=== PATIENT | female | born 1940 | race Caucasian/White ===

== ENCOUNTER 2016-09-15 12:43 | Inpatient (IN) | payer MEDICARE ==
[~2016-09-15] VITALS: Ht 152.4 cm; Wt 50.8 kg
[~2016-09-15 12:43] MED LIST: ALENDRONATE70 MG PO; ALTERIL PO; ASPIRIN CHEWABL81 MG OR; ASPIRIN LOW81 M1 PO; AUGMENTIN500TAB PO; CALCIUM500 MG/D PO; CLARITIN10 M1 PO; CLARITIN10 MG PO; DILTIAZEM CD180 MG PO; DILTIAZEM180 MG PO; DUONEB IN; FISH OIL1360 MG; FLEXERIL PO; FLONASE NASAL50 MCG; FOSAMAX70 MG PO; LIPITOR10 MG PO; LIPITOR20 MG PO; LISINOPRIL10 MG PO; LORTAB 7.5 PO; MEDDOSEPAK PO; METOPROLOL TART50 MG PO; MIRALAX3350 N1 PO; PLAVIX75 MG PO; PROAIR HFA IN; ROBITUSSIN AC10 ML PO; VENTOLIN HFA IN; XANAX0.25 MG PO; ZYRTEC-D AL1 PO; ZYRTEC-D ALG PO
--- NOTE | 2016-09-15 13:00 | NUR ---
DIRECT ADMIT VIA WHEELCHAIR ACCOMPANIED BY VOLUNTEER. AMBULATED TO BED WITH STEADY GAIT. SOB NOTED WITH EXERTION. ORIENTED TO ROOM AND CALL SYSTEM. #20 LFA STARTED AFTER 1 ATTEMPT BY Fadumo WEBSTER RN. PT TOLERATED WELL. SAFETY PRECAUTIONS REINFORCED. HUMIDIFIED O2 VIA NC STARTED. BED IN LOWEST POSITION WITH WHEELS LOCKED. CALL LIGHT WITHIN REACH. ENCOURAGED PT TO CALL FOR ANY NEEDS.
[2016-09-15 13:05] VITALS: BP 186/114
--- NOTE | 2016-09-15 14:00 | NUR ---
TO RADIOLOGY IN STABLE CONDITION VIA WHEELCHAIR ACCOMPANIED BY VOLUNTEER.
[2016-09-15 14:12] LABS: HEMATOCRIT 45.1 % (37.0-47.0); HEMOGLOBIN 15.2 g/dl (12.0-16.0); MEAN CELL VOLUME 91.7 fL CALC (80.0-100.0); MEAN CORPUSCULAR HGB 30.9 pG CALC (26.0-32.0); MEAN CORPUSCULAR HGB CONC 33.7 g/L CALC (32.0-36.0); RED BLOOD COUNT 4.92 mill/uL (4.20-5.60); RED CELL DISTRI WIDTH 14.1 % (11.5-15.5)
--- NOTE | 2016-09-15 14:30 | NUR ---
FROM RADIOLOGY VIA WHEELCHAIR ACCOMPANIED BY VOLUNTEER.
[2016-09-15 15:30] LABS: ALBUMIN 4.3 g/dL (3.2-5.0); ALKALINE PHOSPHATASE 102 u/l (38-126); ANION GAP 15 (6-22 (CALC)); BILIRUBIN, TOTAL 0.8 mg/dL (0.0-1.4); BUN 21 mg/dL (8-23); BUN/CREATININE RATIO 23 (12-20 (CALC)); CALCIUM 10.3 mg/dL (8.4-10.2); CARBON DIOXIDE 29 mmol/l (22-30); CHLORIDE 102 mmol/l (95-108); CREATININE 0.9 mg/dL (0.5-1.0); GFR > 60 ML/MIN (>=60 (CALC)); GFR FOR AFR.AMER. > 60 ML/MIN (>=60 (CALC)); GLUCOSE 105 mg/dL (82-115); SGOT/AST 27 u/l (9-36); SGPT/ALT 29 u/l (11-66); SODIUM 141 mmol/l (137-146); TOTAL PROTEIN 7.9 g/dL (6.3-8.2)
[2016-09-15 15:34] LABS: URINE BILIRUBIN - DIPSTICK NEGATIVE (NEGATIVE); URINE BLOOD DIPSTICK TRACE-INTACT (NEGATIVE); URINE CLARITY CLEAR; URINE COLOR YELLOW; URINE GLUCOSE - DIPSTICK NEGATIVE (NEGATIVE); URINE KETONE NEGATIVE (NEGATIVE); URINE LEUK ESTERASE SMALL (Negative); URINE NITRITE - DIPSTICK NEGATIVE (Negative); URINE PROTEIN - DIPSTICK 30 mg/dL (NEG-TRACE); URINE UROBILINOGEN - DIPSTICK 0.2 E.U./dL (0.2)
[2016-09-15 15:45] LABS: URINE RBC 0-2 RBC/hpf (0-5); URINE SQUAMOUS EPITHELIAL CELL FEW EPI/hpf (0-FEW)
--- NOTE | 2016-09-15 16:00 | NUR ---
IN HIGH FOWLERS POSITON. YASMINE MCKINNEY RN IN WITH PT. RESPS EVEN AND UNLABORED ON O2 VIA NC, SOB NOTED ON EXERTION. #20 LFA INFUSING WITHOUT DIFFICULTY, SITE APPEARS HEALTHY. VOICES NO C/O AT THIS TIME. CALL LIGHT WITHIN REACH. WILL CONTINUE TO MONITOR.
[2016-09-15 17:03] VITALS: BP 178/92
[2016-09-15 19:05] VITALS: BP 172/96
--- NOTE | 2016-09-15 20:20 | NUR ---
PT RESTING IN SEMI FOWLERS POSITION;HUMIDIFIED 02 ON @ 3 LITERS VIA NC;PURSED LIP BREATHING TECHNIQUE EDUCATED AND PT DEMONSTRATED UNDERSTANDING;ASSESSMENT COMPLETED;IV FLUIDS INFUSING WELL TO LFA;SKIN INTACT;BED ALARM ON;PT EDUCATED ON ROOM AND CALL LIGHT SYSTEM AND VERBALIZES UNDERSTANDING;SAFETY PRECAUTIONS REINFORCED;PT DENIES ANY NEEDS AT THIS TIME;BED IN LOWEST POSITION WITH CALL LIGHT IN REACH;WILL CONTINUE TO MONITOR
[2016-09-16 00:29] VITALS: BP 163/86
--- NOTE | 2016-09-16 00:30 | NUR ---
PT SLEEPING IN HIGH FOWLERS POSITION;WOKE PT TO OBTAIN VS AND ADMINISTER SCHEDULED MEDICATION;PT VOIDED 400CC OF CLEAR,YELLOW URINE;IV FLUIDS INFUSING WELL TO LFA;PT DENIES ANY NEEDS AT THIS TIME;PT TOLD TO CALL FOR ASSISTANCE IF NEEDED;BED IN LOWEST POSITION WITH CALL LIGHT IN REACH;WILL CONTINUE TO MONITOR
--- NOTE | 2016-09-16 03:30 | NUR ---
PT RESTING IN SEMI FOWLERS POSITION;IV FLUIDS INFUSING WELL AT THIS TIME;VS OBTAINED AND SCHEDULED MEDICATION ADMINISTERED;PT DENIES ANY PAIN OR DISCOMFORTS;RESPIRATIONS EVEN ON 02 @ 3 LITERS VIA NC;PT DENIES ANY NEEDS AT THIS TIME;BED IN LOWEST POSITION WITH CALL LIGHT IN REACH;WILL CONTINUE TO MONITOR
[2016-09-16 03:33] VITALS: BP 156/73
--- NOTE | 2016-09-16 07:00 | NUR ---
SHIFT CHANGE REPORT FROM MUNA PITTS AWAKE ALERT AND ORIENTED, O2 @ 3L VIA M/C IN PLACE, IVF INFUSING, C/O BEING SHAKY AT THIS TIME AND STATES IT HAS BEEN OCCURING SINCE SHE STARTED STEROIDS, EDUCATED ON SIDE EFFECTS OF MEDS, WILL CONTINUE TO MONITOR, CALL HAMILTON IN REACH.
[2016-09-16 09:03] LABS: HEMATOCRIT 45.1 % (37.0-47.0); IMMATURE GRANULOCYTES 0.7 % (0.0-1.0); MEAN CELL VOLUME 92.6 fL CALC (80.0-100.0); MEAN CORPUSCULAR HGB 30.8 pG CALC (26.0-32.0); MEAN CORPUSCULAR HGB CONC 33.3 g/L CALC (32.0-36.0); NEUT# 15.74 thou/uL (2.00-7.15); RED BLOOD COUNT 4.87 mill/uL (4.20-5.60); RED CELL DISTRI WIDTH 13.1 % (11.5-15.5)
[2016-09-16 09:26] VITALS: BP 173/90
[2016-09-16 09:44] LABS: ANION GAP 20 (6-22 (CALC)); BUN 25 mg/dL (8-23); BUN/CREATININE RATIO 28 (12-20 (CALC)); CALCIUM 10.5 mg/dL (8.4-10.2); CARBON DIOXIDE 22 mmol/l (22-30); CHLORIDE 103 mmol/l (95-108); CREATININE 0.9 mg/dL (0.5-1.0); GFR > 60 ML/MIN (>=60 (CALC)); GFR FOR AFR.AMER. > 60 ML/MIN (>=60 (CALC)); GLUCOSE 214 mg/dL (82-115); POTASSIUM 3.6 mmol/l (3.5-5.1); SODIUM 141 mmol/l (137-146)
--- NOTE | 2016-09-16 09:45 | NUR ---
NEB TX FOLLOWED BY CPT VIA PERCUSSOR TO LLL HOB FLAT. PT TOLERATED WELL.
[2016-09-16 11:55] VITALS: BP 177/85
--- NOTE | 2016-09-16 12:00 | NUR ---
C/O ANXIETY, CONCERN ADDRESSED, MEAL CONSUMED, CALL HAMILTON IN REACH.
--- NOTE | 2016-09-16 13:28 | NUR ---
NEB TX FOLLOWED BY CPT VIA PERCUSSOR. PT TOLERATED WELL.
[2016-09-16 15:20] VITALS: BP 169/66
--- NOTE | 2016-09-16 18:24 | NUR ---
PT SITTING IN CHAIR; TOLERATED DINNER WELL
[2016-09-16 19:00] VITALS: BP 135/75
--- NOTE | 2016-09-16 20:35 | NUR ---
PT RESTING IN SEMI FOWLERS POSITION;PT STATES "I HAD A GOOD DAY,I FEEL BETTER";IV FLUIDS INFUSING WELL TO LFA;ASSESSMENT COMPLETED;O2 ON @ 3 LITERS VIA NC;SKIN INTACT;PT RE-EDUCATED ON ROOM AND CALL LIGHT SYSTEM AND VERRBALIZES UNDERSTANDING;PT DENIES ANY PAIN OR DISCOMFORTS AT THIS TIME;SAFETY PRECAUTIONS REINFORCED;PT TOLD TO CALL FOR ASSISTANCE IF NEEDED;FALL PRECAUTIONS IN PLACE;BED IN LOWEST POSITION WITH CALL LIGHT IN REACH;WILL CONTINUE TO MONITOR
--- NOTE | 2016-09-16 22:19 | NUR ---
PT REQUESTS PRN SLEEPING MEDICATION;PT MEDICATED PER MD ORDERS AT THIS TIME;WILL CONTINUE TO MONITOR
--- NOTE | 2016-09-17 | NUR ---
PT APPEARS TO BE SLEEPING AT THIS TIME;NO S/S OF DISTRESS NOTED;RESPIRATIONS EVEN AND UNLABORED ON 02 @ 3 LITERS;IV FLUIDS INFUSING WELL;BED IN LOWEST POSITION WITH CALL LIGHT IN REACH;WILL CONTINUE TO MONITOR
[2016-09-17 00:45] VITALS: BP 169/79
[2016-09-17 04:31] VITALS: BP 164/85
--- NOTE | 2016-09-17 04:35 | NUR ---
PT APPEARS TO BE SLEEPING IN SEMI FOWLERS POSITION AT THIS TIME;WOKE PT TO OBTAIN VS;PT DENIES ANY PAIN OR DISCOMFORTS;RESPIRATIONS EVEN AND UNLABORED ON O2 @ 3 LITERS;PT DENIES ANY OTHER NEEDS AT THIS TIME;BED IN LOWEST POSITION WITH CALL LIGHT IN REACH;WILL CONTINUE TO MONITOR
[2016-09-17 04:53] LABS: HEMATOCRIT 40.2 % (37.0-47.0); HEMOGLOBIN 13.4 g/dl (12.0-16.0); MEAN CELL VOLUME 92.6 fL CALC (80.0-100.0); MEAN CORPUSCULAR HGB 30.9 pG CALC (26.0-32.0); MEAN CORPUSCULAR HGB CONC 33.3 g/L CALC (32.0-36.0); NEUT# 18.3 thou/uL (2.00-7.15); RED BLOOD COUNT 4.34 mill/uL (4.20-5.60); RED CELL DISTRI WIDTH 13.2 % (11.5-15.5)
[2016-09-17 05:15] LABS: ALBUMIN 3.4 g/dL (3.2-5.0); ALKALINE PHOSPHATASE 81 u/l (38-126); ANION GAP 14 (6-22 (CALC)); BILIRUBIN, TOTAL 0.2 mg/dL (0.0-1.4); BUN 29 mg/dL (8-23); BUN/CREATININE RATIO 28 (12-20 (CALC)); CALCIUM 9.7 mg/dL (8.4-10.2); CARBON DIOXIDE 23 mmol/l (22-30); CHLORIDE 104 mmol/l (95-108); GFR 54 ML/MIN (>=60 (CALC)); GFR FOR AFR.AMER. > 60 ML/MIN (>=60 (CALC)); GLUCOSE 168 mg/dL (82-115); POTASSIUM 3.9 mmol/l (3.5-5.1); SGOT/AST 21 u/l (9-36); SGPT/ALT 28 u/l (11-66); SODIUM 137 mmol/l (137-146); TOTAL PROTEIN 5.9 g/dL (6.3-8.2)
[2016-09-17 07:34] VITALS: BP 158/84
--- NOTE | 2016-09-17 07:40 | NUR ---
PT SITTING IN RECLINER; ASSISTED WITH BREAKFAST SET UP; O2 3L VIA NC; CALL HAMILTON WITHIN REACH; WILL CONTINUE TO MONITOR.
--- NOTE | 2016-09-17 08:45 | NUR ---
DR. SAMAYOA IN TO SEE PT; PLAN OF CARE DISCUSSED
--- NOTE | 2016-09-17 09:50 | NUR ---
PT AMBULATORY IN THE HALLS FOR 6 MIN WALK TEST; STAND BY ASSIST RESP THERAPIST; WILL CONTINUE TO MONITOR.
--- NOTE | 2016-09-17 12:00 | NUR ---
PT MEDICATED FOR C/O GARCIA 10/13; CALL HAMILTON WITHIN REACH; WILL CONTINUE TO MONITOR.
[2016-09-17 15:23] VITALS: BP 161/88
--- NOTE | 2016-09-17 16:30 | NUR ---
PT IN HIGH LIANG'S POSITION; DENIES PAIN; IN ROOM TO VISIT; CALL HAMILTON WITHIN REACH; WILL CONTINUE TO MONITOR.
--- NOTE | 2016-09-17 19:58 | NUR ---
BEDSIDE REPORT RECEIVED FROM RAMIRO COCHRAN. PT UP TO BATHROOM AT THIS TIME. DENIES PAIN. SHORTNESS OF BREATH NOTED WITH EXERTION TO THE BATHROOM WITH OXYGEN IN PLACE AT 3L VIA NC. PT HAS NO REQUESTS AT THIS TIME. PLAN OF CARE DISCUSSED. ENCOURAGED TO VERBALIZE CONCERNS. STATES UNDERSTANDING. SAFETY MEASURES IN PLACE. CALL LIGHT SYSTEM REVIEWED AND IN REACH.
[2016-09-17 20:05] VITALS: BP 183/87
[2016-09-17 22:23] VITALS: BP 163/90
--- NOTE | 2016-09-18 | NUR ---
PT ASLEEP AT THIS TIME. RECEIVED TEMAZEPAM AT BEDTIME WITH GOOD EFFECT. NO SIGNS OF PAIN/DISTRESS. RESPIRATIONS EVEN AND UNLABORED WITH OXYGEN IN PLACE. IV SITE FLUSHES AND APPEARS HEALTHY. SAFETY MEASURES IN PLACE. CALL LIGHT WITHIN REACH.
--- NOTE | 2016-09-18 04:00 | NUR ---
PT ASLEEP AT THIS TIME. NO SIGNS OF PAIN OR DISCOMFORT NOTED. RESPIRATIONS EVEN AND UNLABORED. UP TO BATHROOM NEEDED. SAFETY MEASURES IN PLACE. CALL LIGHT WITHIN REACH.
[2016-09-18 05:25] VITALS: BP 158/88
[2016-09-18 06:31] LABS: HEMATOCRIT 41.1 % (37.0-47.0); HEMOGLOBIN 13.5 g/dl (12.0-16.0); IMMATURE GRANULOCYTES 2.3 % (0.0-1.0); MEAN CELL VOLUME 93.4 fL CALC (80.0-100.0); MEAN CORPUSCULAR HGB 30.7 pG CALC (26.0-32.0); MEAN CORPUSCULAR HGB CONC 32.8 g/L CALC (32.0-36.0); NEUT# 14.75 thou/uL (2.00-7.15); RED BLOOD COUNT 4.4 mill/uL (4.20-5.60); RED CELL DISTRI WIDTH 13.3 % (11.5-15.5)
[2016-09-18 06:46] LABS: ANION GAP 12 (6-22 (CALC)); BUN 34 mg/dL (8-23); BUN/CREATININE RATIO 35 (12-20 (CALC)); CALCIUM 9.8 mg/dL (8.4-10.2); CARBON DIOXIDE 26 mmol/l (22-30); CHLORIDE 107 mmol/l (95-108); GFR 54 ML/MIN (>=60 (CALC)); GFR FOR AFR.AMER. > 60 ML/MIN (>=60 (CALC)); GLUCOSE 125 mg/dL (82-115); POTASSIUM 4.6 mmol/l (3.5-5.1); SODIUM 140 mmol/l (137-146)
--- NOTE | 2016-09-18 07:00 | NUR ---
REPORT RECIEVED FROM DILMA KIM; PT SITTING UP IN BED; NO S/S OF DISTRESS NOTED; PT DENIES ANY NEEDS AT THIS TIME; CALL LIGHT WITHIN REACH; WILL CONTINUE TO MONITOR
[2016-09-18 08:03] VITALS: BP 188/97
--- NOTE | 2016-09-18 12:00 | NUR ---
PT AMB IN HALLS WITH STEADY GATE; ANDRES MANNING AT STAND BY FOR ASSISTANCE; O2 NC IN PLACE; PT DENIES ANY SOB OR DISCOMFORT AT THIS TIME; CALL LIGHT WITHIN REACH; WILL CONTINUE TO MONITOR
--- NOTE | 2016-09-18 15:45 | NUR ---
MANUAL B/P READING 190/100 AT THIS TIME; DR SAMAYOA NOTIFIED AND NEW ORDERS RECIEVED; PT MEDICATED WITH CLONIDINE PER DR SAMAYOA; PT EDUCATED ON INDICATIONS FOR MEDICATIONS; WILL CONTINUE TO MONITOR
[2016-09-18 15:59] VITALS: BP 190/100
--- NOTE | 2016-09-18 16:00 | NUR ---
PT SITTING UP IN CHAIR AT BEDSIDE; NO S/S OF DISTRESS NOTED; O2 NC IN PLACE; PT DENIES ANY NEEDS AT THIS TIME; FRIENDS AT THIS TIME; CALL LIGHT WITHIN REACH; WILL CONTINUE TO MONITOR
[2016-09-18 19:29] VITALS: BP 162/84
--- NOTE | 2016-09-18 19:29 | NUR ---
PT. SITTING UP IN BED RESTING IN BED WITH NO DISTRESS NOTED. ASSESSMENT COMPLETED. IV SITE PATENT AND SL. VS OBTAINED, 162/84 AND HR 67, ADMINISTERED ORDERED CLONIDINE PER ORDER. PT. UPDATED WITH POC, VERBALIZES UNDERSTANDING. PO FLUIDS OFFERED. ENCOURAGED TO CALL FOR ANY NEEDS. IS AT BEDSIDE. CALL LIGHT IS IN REACH.
[2016-09-18 22:03] VITALS: BP 177/90
--- NOTE | 2016-09-18 22:05 | NUR ---
NOTIFIED DR. SAMAYOA OF PT'S B/P 177/90 AND HR 61, NEW ORDERS RECEIVED AND TO BE CARRIED OUT.
--- NOTE | 2016-09-18 23:50 | NUR ---
PT. ASSISTED TO THE BATHROOM AND BACK INTO BED. NO DISTRESS NOTED. WILL CONTINUE TO MONITOR.
[2016-09-19] VITALS (7 sets, daily range): BP systolic 128–190; BP diastolic 68–90
--- NOTE | 2016-09-19 03:30 | NUR ---
PT. RESTING IN BED WITH EYES CLOSED, NO DISTRESS NOTED. RESP EVEN AND UNLABORED. CALL LIGHT IS IN REACH.
--- NOTE | 2016-09-19 05:10 | NUR ---
PT'S B/P 190/86 AND HR 62, MEDICATED WITH ORDERED CLONIDINE. PO FLUIDS OFFERED. DENIES NEEDS/PAIN. CALL LIGHT IS IN REACH.
[2016-09-19 05:18] LABS: HEMATOCRIT 40.8 % (37.0-47.0); HEMOGLOBIN 13.6 g/dl (12.0-16.0); IMMATURE GRANULOCYTES 2.4 % (0.0-1.0); MEAN CELL VOLUME 92.3 fL CALC (80.0-100.0); MEAN CORPUSCULAR HGB 30.8 pG CALC (26.0-32.0); MEAN CORPUSCULAR HGB CONC 33.3 g/L CALC (32.0-36.0); NEUT# 9.44 thou/uL (2.00-7.15); RED BLOOD COUNT 4.42 mill/uL (4.20-5.60); RED CELL DISTRI WIDTH 13.1 % (11.5-15.5)
[2016-09-19 05:35] LABS: ALBUMIN 3.6 g/dL (3.2-5.0); ALKALINE PHOSPHATASE 81 u/l (38-126); ANION GAP 12 (6-22 (CALC)); BILIRUBIN, TOTAL 0.5 mg/dL (0.0-1.4); BUN 27 mg/dL (8-23); BUN/CREATININE RATIO 31 (12-20 (CALC)); CALCIUM 9.8 mg/dL (8.4-10.2); CARBON DIOXIDE 29 mmol/l (22-30); CHLORIDE 101 mmol/l (95-108); CREATININE 0.9 mg/dL (0.5-1.0); GFR > 60 ML/MIN (>=60 (CALC)); GFR FOR AFR.AMER. > 60 ML/MIN (>=60 (CALC)); GLUCOSE 135 mg/dL (82-115); POTASSIUM 4.4 mmol/l (3.5-5.1); SGOT/AST 33 u/l (9-36); SGPT/ALT 54 u/l (11-66); SODIUM 137 mmol/l (137-146); TOTAL PROTEIN 6.2 g/dL (6.3-8.2)
--- NOTE | 2016-09-19 06:30 | NUR ---
DR. SAMAYOA CALLED AND NOTIFIED OF PT'S MANUAL B/P 180/90 AFTER ADMINISTRATION OF CLONIDINE , NEW ORDERS RECEIVED AND TO BE CARRIED OUT.
--- NOTE | 2016-09-19 07:00 | NUR ---
REPORT RECIEVED FROM RAMIRO VAZQUEZ; PT RESTING IN BED; RT AT BEDSIDE FOR PERCUSSION THERAPY; PT DENIES ANY NEEDS AT THIS TIME; CALL LIGHT WITHIN REACH; WILL CONTINUE TO MONITOR
--- NOTE | 2016-09-19 12:43 | NUR ---
PT SITTING UP IN CHAIR FOR LUNCH; NO S/S OF DISTRESS NOTED; O2 NC IN PLACE; SPOUSE AT BEDSIDE; PT DENIES ANY NEEDS AT THIS TIME; CALL LIGHT WITHIN REACH; WILL CONTINUE TO [place]
--- NOTE | 2016-09-19 20:30 | NUR ---
PT RESTING IN SEMI FOWLERS POSITION;PT DENIES ANY PAIN OR DISCOMFORTS;IV SITE TO RT FOREARM FLUSHED AND PATENT;02 ON @ 3 LITERS VIA NC;ASSESSMENT COMPLETED;NON PRODUCTIVE COUGH NOTED AT TIMES;PURSED LIP BREATHING TECHNIQUE RE-EDUCATED;PT DENIES ANY NEEDS;PT TOLD TO CALL FOR ASSISTANCE IF NEEDED;SAFETY PRECAUTIONS REINFORCED;BED IN LOWEST POSITION WITH CALL LIGHT IN REACH;WILL CONTINUE TO MONITOR
--- NOTE | 2016-09-20 00:45 | NUR ---
PT APPEARS TO BE SLEEPING IN HIGH FOWLERS POSITION;02 0N @ 3 LITERS VIA NC;NO S/S OF DISTRESS NOTED;RESPIRATIONS EVEN AND UNLABORED;BED IN LOWEST POSITION WITH FALL PRECAUTIONS IN PLACE;CALL LIGHT WITHIN REACH;WILL CONTINUE TO MONITOR
--- NOTE | 2016-09-20 04:30 | NUR ---
PT APPEARS TO BE SLEEPING AT THIS TIME;NO S/S OF DISTRESS NOTED;RESPIRATIONS EVEN AND UNLABORED ON 02 @ 3 LITERS;FALL PRECAUTIONS IN PLACE;BED IN LOWEST POSITION WITH CALL LIGHT IN REACH;WILL CONTINUE TO MONITOR
[2016-09-20 04:55] VITALS: BP 136/78
[2016-09-20 05:25] LABS: HEMATOCRIT 42.1 % (37.0-47.0); HEMOGLOBIN 14.1 g/dl (12.0-16.0); IMMATURE GRANULOCYTES 3.2 % (0.0-1.0); MEAN CELL VOLUME 92.1 fL CALC (80.0-100.0); MEAN CORPUSCULAR HGB 30.9 pG CALC (26.0-32.0); MEAN CORPUSCULAR HGB CONC 33.5 g/L CALC (32.0-36.0); NEUT# 10.61 thou/uL (2.00-7.15); RED BLOOD COUNT 4.57 mill/uL (4.20-5.60)
[2016-09-20 05:53] LABS: ANION GAP 13 (6-22 (CALC)); BUN 31 mg/dL (8-23); BUN/CREATININE RATIO 33 (12-20 (CALC)); CALCIUM 9.8 mg/dL (8.4-10.2); CARBON DIOXIDE 28 mmol/l (22-30); CHLORIDE 100 mmol/l (95-108); GFR 54 ML/MIN (>=60 (CALC)); GFR FOR AFR.AMER. > 60 ML/MIN (>=60 (CALC)); GLUCOSE 118 mg/dL (82-115); POTASSIUM 4.5 mmol/l (3.5-5.1); SODIUM 137 mmol/l (137-146)
--- NOTE | 2016-09-20 07:45 | NUR ---
PT ASSISTED WITH [facility] SET UP; DENIES PAIN ; 02 3L VIA NC; CALL HAMILTON WITHIN REACH; WILL CONTINUE TO MONITOR.
--- NOTE | 2016-09-20 08:45 | NUR ---
DR. SAMAYOA IN TO SEE PT; PLAN OF CARE DISCUSSED
[2016-09-20 09:45] VITALS: BP 163/84
--- NOTE | 2016-09-20 12:00 | NUR ---
PT SITTING IN BED; TOLERATING LUNCH WELL; GAVE INHALER PER PT REQUEST; SPOUSE IN ROOM TO VISIT; CALL HAMILTON WITHIN REACH; WILL CONTINUE TO MONITOR.
[2016-09-20] MEDS ORDERED: METOPROLOL TART50 MG PO (12:26)
[2016-09-20] MEDS ORDERED: DUONEB IN (12:26)
[2016-09-20] MEDS ORDERED: LIPITOR20 MG PO (12:26)
[2016-09-20] MEDS ORDERED: ASPIRIN LOW81 M1 PO (12:27)
[2016-09-20] MEDS ORDERED: XANAX0.25 MG PO (12:27)
[2016-09-20] MEDS ORDERED: MIRALAX3350 N1 PO (12:27)
[2016-09-20] MEDS ORDERED: DILTIAZEM CD180 MG PO (12:27)
[2016-09-20] MEDS ORDERED: ROBITUSSIN AC10 ML PO (12:27)
[2016-09-20] MEDS ORDERED: ALENDRONATE70 MG PO (12:28)
[2016-09-20] MEDS ORDERED: PREDNISONE20 MG PO (12:29)
[2016-09-20 13:31] VITALS: BP 166/84
--- NOTE | 2016-09-20 14:42 | NUR ---
PT STATES SOB IS BETTER; REQUESTING TO GO HOME AT THIS TIME
--- NOTE | 2016-09-20 15:38 | NUR ---
Discharge instructions given. Patient verbalizes understanding of same. Discharged in stable condition via Wheelchair to Home with family. All belongings sent with pt.
== END 2016-09-20 16:08 | disposition home or self-care (01) | DRG 189 ==
LOC: ENPENDDIS → MS2 12:43
PROVIDERS: ADMIT Internal Medicine Geriatric Medicine; ATTEND Internal Medicine Geriatric Medicine
DX: J96.00 Acute respiratory failure, unspecified whether with hypoxia or hypercapnia (principal); J44.0 Chronic obstructive pulmonary disease with (acute) lower respiratory infection; F32.9 Major depressive disorder, single episode, unspecified; I10 Essential (primary) hypertension; J20.9 Acute bronchitis, unspecified; I25.10 Atherosclerotic heart disease of native coronary artery without angina pectoris; E78.5 Hyperlipidemia, unspecified; J45.909 Unspecified asthma, uncomplicated; E03.9 Hypothyroidism, unspecified; M19.90 Unspecified osteoarthritis, unspecified site; J32.9 Chronic sinusitis, unspecified; F41.9 Anxiety disorder, unspecified

== ENCOUNTER → 2018-08-09 | Outpatient (REF) | payer MEDICARE ==
[~2018-08-09] MED LIST changes: +PREDNISONE20 MG PO
[2018-08-09 08:13] LABS: HEMATOCRIT 46.7 % (37.0-47.0); HEMOGLOBIN 15.5 g/dl (12.0-16.0); MEAN CELL VOLUME 93.4 fL CALC (80.0-100.0); MEAN CORPUSCULAR HGB CONC 33.2 g/L CALC (32.0-36.0); RED CELL DISTRI WIDTH 12.9 % (11.5-15.5)
[2018-08-09 08:21] LABS: ALBUMIN 4.6 g/dL (3.2-5.0); ALKALINE PHOSPHATASE 84 u/l (38-126); ANION GAP 13 (6-22 (CALC)); BILIRUBIN, TOTAL 0.7 mg/dL (0.0-1.4); BUN 25 mg/dL (8-23); BUN/CREATININE RATIO 26 (12-20 (CALC)); CALCULATED LDLCHOLESTEROL 79 mg/dL (62-129 (CALC)); CARBON DIOXIDE 28 mmol/l (22-30); CHLORIDE 105 mmol/l (95-108); CHOLESTEROL HDL RATIO 2.4 (<4.4 (CALC)); GFR 54 ML/MIN (>=60 (CALC)); GFR FOR AFR.AMER. > 60 ML/MIN (>=60 (CALC)); HDL CHOLESTEROL 71 mg/dL (>=40); POTASSIUM 4.4 mmol/l (3.5-5.1); SGOT/AST 27 u/l (9-36); SODIUM 142 mmol/l (137-146); TOTAL CHOLESTEROL 167 mg/dl (0-199); TOTAL PROTEIN 7.1 g/dL (6.3-8.2); TOTAL TRIGLYCERIDES 85 mg/dl (30-149); VLDL CHOLESTROL 17 mg/dl (0-48 (CALC))
== END | disposition home or self-care (01) ==
LOC: LAB 07:18
PROVIDERS: ATTEND Internal Medicine
DX: I10 Essential (primary) hypertension (principal); E78.49 Other hyperlipidemia; E03.9 Hypothyroidism, unspecified; R53.83 Other fatigue; I50.22 Chronic systolic (congestive) heart failure; E11.65 Type 2 diabetes mellitus with hyperglycemia; E21.3 Hyperparathyroidism, unspecified

== ENCOUNTER 2020-04-12 12:43 | Emergency (ER) | payer MEDICARE ==
[~2020-04-12] VITALS: Ht 152.4 cm; Wt 45.0 kg
[2020-04-12] MEDS ORDERED: IPRATROPIU0.5 MG/3 M IN (13:04)
[2020-04-12] MEDS ORDERED: TRELEGY ELLIPTA1 AER IN (13:05)
[2020-04-12] MEDS ORDERED: LOSARTAN POTAS100 MG PO (13:06)
[2020-04-12] MEDS ORDERED: SERTRALINE HCL50 MG PO (13:06)
[2020-04-12] MEDS ORDERED: MONTELUKAST SOD10 MG PO (13:06)
[2020-04-12] MEDS ORDERED: DILTIAZEM HYDR240 MG PO (13:07)
[2020-04-12] MEDS ORDERED: ATORVASTATIN CA20 MG PO (13:07)
[2020-04-12] MEDS ORDERED: MIRALAX17 GM/SCOO PO (13:08)
[2020-04-12 13:30] VITALS: BP 118/56
== END 2020-04-12 13:34 | disposition home or self-care (01) ==
LOC: ED 12:43
PROC: 0H9DXZZ Drainage of Right Lower Arm Skin, External Approach (ICD-10-PCS; principal; 2020-04-12)
DX: L02.413 Cutaneous abscess of right upper limb (principal); I10 Essential (primary) hypertension; E78.5 Hyperlipidemia, unspecified; B95.62 Methicillin resistant Staphylococcus aureus infection as the cause of diseases classified elsewhere; Z95.5 Presence of coronary angioplasty implant and graft

== ENCOUNTER 2020-12-22 11:37 | Emergency (ER) | payer MEDICARE ==
[~2020-12-22] VITALS: Ht 152.4 cm; Wt 45.0 kg
[~2020-12-22 11:37] MED LIST changes: +ATORVASTATIN CA20 MG PO; +DILTIAZEM HYDR240 MG PO; +IPRATROPIU0.5 MG/3 M IN; +LOSARTAN POTAS100 MG PO; +MIRALAX17 GM/SCOO PO; +MONTELUKAST SOD10 MG PO; +SERTRALINE HCL50 MG PO; +TRELEGY ELLIPTA1 AER IN
[2020-12-22 12:59] VITALS: BP 150/82
== END 2020-12-22 13:08 | disposition home or self-care (01) ==
LOC: ED 11:37
DX: M19.011 Primary osteoarthritis, right shoulder (principal); M47.812 Spondylosis without myelopathy or radiculopathy, cervical region; D17.1 Benign lipomatous neoplasm of skin and subcutaneous tissue of trunk; I10 Essential (primary) hypertension; E78.5 Hyperlipidemia, unspecified; Z95.5 Presence of coronary angioplasty implant and graft; Z12.31 Encounter for screening mammogram for malignant neoplasm of breast

== ENCOUNTER 2021-07-25 09:44 | Emergency (ER) | payer MEDICARE ==
[~2021-07-25] VITALS: Ht 152.4 cm; Wt 38.6 kg
[2021-07-25 10:57] LABS: HEMATOCRIT 41.2 % (37.0-47.0); HEMOGLOBIN 13.1 g/dl (12.0-16.0); MEAN CELL VOLUME 94.1 fL CALC (80.0-100.0); MEAN CORPUSCULAR HGB 29.9 pG CALC (26.0-32.0); MEAN CORPUSCULAR HGB CONC 31.8 g/dL CAL (32.0-36.0); NEUT# 4.06 thou/uL (2.00-7.15); RED BLOOD COUNT 4.38 mill/uL (4.20-5.60); RED CELL DISTRI WIDTH 13.4 % (11.5-15.5)
[2021-07-25 11:00] LABS: ALKALINE PHOSPHATASE 83 u/l (38-126); ANION GAP 13 (6-22 (CALC)); BILIRUBIN, TOTAL 0.4 mg/dL (0.0-1.4); BUN 21 mg/dL (8-23); BUN/CREATININE RATIO 22 (12-20 (CALC)); CARBON DIOXIDE 26 mmol/l (22-30); CHLORIDE 108 mmol/l (95-108); CREATININE 0.9 mg/dL (0.5-1.0); GFR 60 ML/MIN (>=60 (CALC)); GFR FOR AFR.AMER. > 60 ML/MIN (>=60 (CALC)); POTASSIUM 4.1 mmol/l (3.5-5.1); SGOT/AST 28 u/l (9-36); SODIUM 143 mmol/l (137-146); TOTAL PROTEIN 6.6 g/dL (6.3-8.2)
[2021-07-25] MEDS ORDERED: ASPIRIN81 MG PO (11:10)
[2021-07-25] MEDS ORDERED: MAGNESIUM 400 M1 TAB (11:11)
[2021-07-25] MEDS ORDERED: VITAMIN D2000 UNI1 PO (11:11)
[2021-07-25] MEDS ORDERED: NORVASC5 M1 PO (11:12)
[2021-07-25] MEDS ORDERED: VITAMIN B-121000 MCG PO (11:12)
[2021-07-25 18:14] VITALS: BP 168/98
== END 2021-07-25 18:15 | disposition short-term general hospital (02) ==
LOC: ED 09:44
PROVIDERS: Family Medicine
DX: J18.9 Pneumonia, unspecified organism (principal); R04.2 Hemoptysis; I10 Essential (primary) hypertension; E78.5 Hyperlipidemia, unspecified; Z88.1 Allergy status to other antibiotic agents; Z20.822 Contact with and (suspected) exposure to COVID-19
CPT/HCPCS: Q9967; S0164

== ENCOUNTER 2022-02-07 11:02 | Emergency (ER) | payer MEDICARE ==
[2022-02-07] VITALS (13 sets, daily range): BP systolic 129–157; BP diastolic 69–93
[~2022-02-07] VITALS: Ht 152.4 cm; Wt 37.2 kg
[~2022-02-07 11:02] MED LIST changes: +ASPIRIN81 MG PO; +MAGNESIUM 400 M1 TAB; +NORVASC5 M1 PO; +VITAMIN B-121000 MCG PO; +VITAMIN D2000 UNI1 PO
[2022-02-07] MEDS ORDERED: ALBUTEROL SUL0.083 % IN (11:38)
[2022-02-07 12:01] LABS: HEMOGLOBIN 11.4 g/dl (12.0-16.0); IMMATURE GRANULOCYTES 0.2 % (0.0-5.0); MEAN CELL VOLUME 91.8 fL CALC (80.0-100.0); MEAN CORPUSCULAR HGB 31.1 pG CALC (26.0-32.0); MEAN CORPUSCULAR HGB CONC 33.8 g/dL CAL (32.0-36.0); NEUT# 4.41 thou/uL (2.00-7.15); RED BLOOD COUNT 3.67 mill/uL (4.20-5.60); RED CELL DISTRI WIDTH 13.5 % (11.5-15.5)
[2022-02-07 12:02] LABS: HEMATOCRIT 33.7 % (37.0-47.0)
[2022-02-07 12:14] LABS: ALBUMIN 4.1 g/dL (3.2-5.0); ALKALINE PHOSPHATASE 80 u/l (38-126); ANION GAP 12 (6-22 (CALC)); BILIRUBIN, TOTAL 0.3 mg/dL (0.0-1.4); BUN 36 mg/dL (8-23); BUN/CREATININE RATIO 36 (12-20 (CALC)); CARBON DIOXIDE 23 mmol/l (22-30); CHLORIDE 110 mmol/l (95-108); GFR FOR AFR.AMER. > 60 ML/MIN (>=60 (CALC)); GFR OTHER RACES 53 ML/MIN (>=60 (CALC)); POTASSIUM 4.2 mmol/l (3.5-5.1); SGOT/AST 26 u/l (9-36); SODIUM 141 mmol/l (137-146)
[2022-02-07] MEDS ORDERED: DOXY-CAPS100 MG PO (13:39)
[2022-02-07] MEDS ORDERED: PREDNISONE50 MG PO (13:39)
== END 2022-02-07 14:15 | disposition home or self-care (01) ==
LOC: ED 11:02
PROVIDERS: Family Medicine
DX: J06.9 Acute upper respiratory infection, unspecified (principal); J40 Bronchitis, not specified as acute or chronic; J44.9 Chronic obstructive pulmonary disease, unspecified; I10 Essential (primary) hypertension; E78.5 Hyperlipidemia, unspecified; Z95.5 Presence of coronary angioplasty implant and graft; Z85.118 Personal history of other malignant neoplasm of bronchus and lung; Z87.891 Personal history of nicotine dependence; Z20.822 Contact with and (suspected) exposure to COVID-19

== ENCOUNTER 2022-02-17 00:37 | Observation (INO) | payer MEDICARE ==
[~2022-02-17] VITALS: Ht 152.4 cm; Wt 37.0 kg
[2022-02-17] VITALS (12 sets, daily range): BP systolic 121–185; BP diastolic 68–101
[~2022-02-17 00:37] MED LIST changes: +ALBUTEROL SUL0.083 % IN; +DOXY-CAPS100 MG PO; +PREDNISONE50 MG PO
[2022-02-17 01:08] LABS: HEMATOCRIT 38.6 % (37.0-47.0); HEMOGLOBIN 12.8 g/dl (12.0-16.0); IMMATURE GRANULOCYTES 1.1 % (0.0-5.0); MEAN CELL VOLUME 92.3 fL CALC (80.0-100.0); MEAN CORPUSCULAR HGB 30.6 pG CALC (26.0-32.0); MEAN CORPUSCULAR HGB CONC 33.2 g/dL CAL (32.0-36.0); NEUT# 8.42 thou/uL (2.00-7.15); RED BLOOD COUNT 4.18 mill/uL (4.20-5.60); RED CELL DISTRI WIDTH 13.4 % (11.5-15.5)
[2022-02-17 01:17] LABS: ALKALINE PHOSPHATASE 87 u/l (38-126); AMYLASE 121 u/l (30-110); ANION GAP 15 (6-22 (CALC)); BILIRUBIN, TOTAL 0.4 mg/dL (0.0-1.4); BUN 41 mg/dL (8-23); BUN/CREATININE RATIO 35 (12-20 (CALC)); CARBON DIOXIDE 25 mmol/l (22-30); CHLORIDE 102 mmol/l (95-108); CREATININE 1.2 mg/dL (0.5-1.0); GFR FOR AFR.AMER. 52 ML/MIN (>=60 (CALC)); GFR OTHER RACES 43 ML/MIN (>=60 (CALC)); LIPASE 279 u/l (23-300); POTASSIUM 4.3 mmol/l (3.5-5.1); SGOT/AST 35 u/l (9-36); SODIUM 139 mmol/l (137-146); TOTAL PROTEIN 7.8 g/dL (6.3-8.2)
[2022-02-17 01:29] LABS: MYOGLOBIN 102 ng/mL (0 - 62)
[2022-02-17 01:35] LABS: URINE BILIRUBIN - DIPSTICK NEGATIVE (NEGATIVE); URINE BLOOD DIPSTICK NEGATIVE (NEGATIVE); URINE COLOR YELLOW; URINE GLUCOSE - DIPSTICK NEGATIVE (NEGATIVE); URINE KETONE NEGATIVE (NEGATIVE); URINE LEUK ESTERASE NEGATIVE (NEGATIVE); URINE PROTEIN - DIPSTICK NEGATIVE (NEG-TRACE); URINE UROBILINOGEN - DIPSTICK 0.2 E.U./dL (0.2)
[2022-02-17 01:42] LABS: URINE NITRITE - DIPSTICK NEGATIVE (Negative)
== END 2022-02-17 13:05 | disposition home or self-care (01) ==
LOC: ED 00:37 → ED-I 02:50 → ED 03:24 → MS2 03:25
PROVIDERS: Emergency Medicine; ADMIT Internal Medicine; ATTEND Internal Medicine
DX: K59.09 Other constipation (principal); I10 Essential (primary) hypertension; J44.9 Chronic obstructive pulmonary disease, unspecified; E78.5 Hyperlipidemia, unspecified; Q43.9 Congenital malformation of intestine, unspecified; Z95.5 Presence of coronary angioplasty implant and graft; Z87.891 Personal history of nicotine dependence; Z85.118 Personal history of other malignant neoplasm of bronchus and lung; Z90.2 Acquired absence of lung [part of]; Z20.822 Contact with and (suspected) exposure to COVID-19
CPT/HCPCS: S0164

== ENCOUNTER 2022-02-26 09:06 | Inpatient (IN) | payer MEDICARE ==
[~2022-02-26] VITALS: Ht 149.9 cm; Wt 38.0 kg
[2022-02-26] VITALS (22 sets, daily range): BP systolic 85–148; BP diastolic 48–70
[2022-02-26] MEDS ORDERED: ADVAIR DISK1 INH (09:56)
[2022-02-26] MEDS ORDERED: ACETAMINOP160 MG/5 M PO (09:59)
[2022-02-26 10:16] LABS: URINE BILIRUBIN - DIPSTICK NEGATIVE (NEGATIVE); URINE BLOOD DIPSTICK NEGATIVE (NEGATIVE); URINE COLOR YELLOW; URINE GLUCOSE - DIPSTICK NEGATIVE (NEGATIVE); URINE KETONE TRACE mg/dL (NEGATIVE); URINE LEUK ESTERASE NEGATIVE (NEGATIVE); URINE PROTEIN - DIPSTICK NEGATIVE (NEG-TRACE); URINE SPECIFIC GRAVITY 1.025; URINE UROBILINOGEN - DIPSTICK 0.2 E.U./dL (0.2)
[2022-02-26 10:18] LABS: URINE NITRITE - DIPSTICK NEGATIVE (Negative)
[2022-02-26 10:41] LABS: ALKALINE PHOSPHATASE 76 u/l (38-126); ANION GAP 13 (6-22 (CALC)); BUN 33 mg/dL (8-23); BUN/CREATININE RATIO 26 (12-20 (CALC)); CARBON DIOXIDE 18 mmol/l (22-30); CHLORIDE 107 mmol/l (95-108); CREATININE 1.3 mg/dL (0.5-1.0); GFR FOR AFR.AMER. 48 ML/MIN (>=60 (CALC)); GFR OTHER RACES 39 ML/MIN (>=60 (CALC)); POTASSIUM 4.4 mmol/l (3.5-5.1); SGOT/AST 26 u/l (9-36); SODIUM 134 mmol/l (137-146)
[2022-02-26 10:42] LABS: ALBUMIN 3.7 g/dL (3.2-5.0); BILIRUBIN, TOTAL 0.8 mg/dL (0.0-1.4)
[2022-02-26 10:54] LABS: MYOGLOBIN 72 ng/mL (0 - 62)
[2022-02-26 10:56] LABS: HEMATOCRIT 34.4 % (37.0-47.0); HEMOGLOBIN 11.4 g/dl (12.0-16.0); MEAN CORPUSCULAR HGB 30.8 pG CALC (26.0-32.0); MEAN CORPUSCULAR HGB CONC 33.1 g/dL CAL (32.0-36.0); PLATELET COUNT 216 thou/uL (130-400); RED CELL DISTRI WIDTH 13.6 % (11.5-15.5)
[2022-02-26 11:01] LABS: MANUAL DIFFERENTIAL YES
[2022-02-27 00:18] VITALS: BP 91/51
[2022-02-27 03:56] VITALS: BP 93/57
[2022-02-27 05:34] LABS: HEMATOCRIT 32.7 % (37.0-47.0); HEMOGLOBIN 10.4 g/dl (12.0-16.0); MEAN CELL VOLUME 97.3 fL CALC (80.0-100.0); MEAN CORPUSCULAR HGB CONC 31.8 g/dL CAL (32.0-36.0); RED BLOOD COUNT 3.36 mill/uL (4.20-5.60); RED CELL DISTRI WIDTH 13.9 % (11.5-15.5)
[2022-02-27 05:39] LABS: CREATININE 1.1 mg/dL (0.5-1.0); MAGNESIUM 2.5 mg/dL (1.6-2.3); POTASSIUM 3.7 mmol/l (3.5-5.1)
[2022-02-27 06:35] VITALS: BP 89/49
[2022-02-27 10:43] VITALS: BP 90/52
[2022-02-27 15:29] VITALS: BP 101/60
[2022-02-27 19:02] VITALS: BP 87/53
[2022-02-28] VITALS (7 sets, daily range): BP systolic 102–142; BP diastolic 55–84
[2022-02-28 04:56] LABS: HEMATOCRIT 32.5 % (37.0-47.0); HEMOGLOBIN 10.3 g/dl (12.0-16.0); IMMATURE GRANULOCYTES 0.8 % (0.0-5.0); MEAN CORPUSCULAR HGB 30.7 pG CALC (26.0-32.0); MEAN CORPUSCULAR HGB CONC 31.7 g/dL CAL (32.0-36.0); NEUT# 14.33 thou/uL (2.00-7.15); RED BLOOD COUNT 3.35 mill/uL (4.20-5.60); RED CELL DISTRI WIDTH 14.1 % (11.5-15.5)
[2022-02-28 05:10] LABS: ANION GAP 12 (6-22 (CALC)); BUN 24 mg/dL (8-23); BUN/CREATININE RATIO 26 (12-20 (CALC)); CARBON DIOXIDE 17 mmol/l (22-30); CHLORIDE 114 mmol/l (95-108); CREATININE 0.9 mg/dL (0.5-1.0); GFR FOR AFR.AMER. > 60 ML/MIN (>=60 (CALC)); GFR OTHER RACES 60 ML/MIN (>=60 (CALC)); POTASSIUM 3.8 mmol/l (3.5-5.1); SODIUM 138 mmol/l (137-146)
[2022-03-01] VITALS (8 sets, daily range): BP systolic 119–178; BP diastolic 66–83
[2022-03-01 05:20] LABS: HEMATOCRIT 32.6 % (37.0-47.0); HEMOGLOBIN 10.4 g/dl (12.0-16.0); IMMATURE GRANULOCYTES 0.7 % (0.0-5.0); MEAN CELL VOLUME 96.7 fL CALC (80.0-100.0); MEAN CORPUSCULAR HGB 30.9 pG CALC (26.0-32.0); MEAN CORPUSCULAR HGB CONC 31.9 g/dL CAL (32.0-36.0); NEUT# 10.67 thou/uL (2.00-7.15); RED BLOOD COUNT 3.37 mill/uL (4.20-5.60); RED CELL DISTRI WIDTH 14.1 % (11.5-15.5)
[2022-03-01 05:47] LABS: ANION GAP 9 (6-22 (CALC)); BUN 19 mg/dL (8-23); BUN/CREATININE RATIO 24 (12-20 (CALC)); CARBON DIOXIDE 18 mmol/l (22-30); CHLORIDE 117 mmol/l (95-108); CREATININE 0.8 mg/dL (0.5-1.0); GFR FOR AFR.AMER. > 60 ML/MIN (>=60 (CALC)); GFR OTHER RACES > 60 ML/MIN (>=60 (CALC)); POTASSIUM 4.1 mmol/l (3.5-5.1); SODIUM 140 mmol/l (137-146)
[2022-03-02 01:09] VITALS: BP 144/81
[2022-03-02 03:54] VITALS: BP 136/82
[2022-03-02 05:11] LABS: HEMATOCRIT 29.5 % (37.0-47.0); HEMOGLOBIN 9.5 g/dl (12.0-16.0); IMMATURE GRANULOCYTES 0.3 % (0.0-5.0); MEAN CELL VOLUME 94.9 fL CALC (80.0-100.0); MEAN CORPUSCULAR HGB 30.5 pG CALC (26.0-32.0); MEAN CORPUSCULAR HGB CONC 32.2 g/dL CAL (32.0-36.0); NEUT# 7.83 thou/uL (2.00-7.15); RED BLOOD COUNT 3.11 mill/uL (4.20-5.60)
[2022-03-02 05:32] LABS: ALKALINE PHOSPHATASE 96 u/l (38-126); ANION GAP 11 (6-22 (CALC)); BILIRUBIN, TOTAL 0.5 mg/dL (0.0-1.4); BUN 17 mg/dL (8-23); BUN/CREATININE RATIO 21 (12-20 (CALC)); CARBON DIOXIDE 18 mmol/l (22-30); CHLORIDE 113 mmol/l (95-108); CREATININE 0.8 mg/dL (0.5-1.0); GFR FOR AFR.AMER. > 60 ML/MIN (>=60 (CALC)); GFR OTHER RACES > 60 ML/MIN (>=60 (CALC)); POTASSIUM 3.8 mmol/l (3.5-5.1); SGOT/AST 21 u/l (9-36); SODIUM 138 mmol/l (137-146); TOTAL PROTEIN 5.5 g/dL (6.3-8.2)
[2022-03-02 05:36] LABS: ALBUMIN 2.8 g/dL (3.2-5.0); MAGNESIUM 1.8 mg/dL (1.6-2.3)
[2022-03-02 06:40] VITALS: BP 157/85
[2022-03-02 06:44] VITALS: BP 157/85
[2022-03-02 10:19] VITALS: BP 128/79
[2022-03-02] MEDS ORDERED: LEVOFLOXACIN500MG PO (11:34)
[2022-03-02] MEDS ORDERED: ALBUTEROL SUL0.083 % IN (11:35)
== END 2022-03-02 12:45 | disposition home or self-care (01) | DRG 178 ==
LOC: ED 09:06 → ED-I 13:09 → ED 13:24 → MS2 13:25
PROVIDERS: Emergency Medicine; Internal Medicine; Nurse Practitioner; ADMIT Internal Medicine; ATTEND Internal Medicine
DX: J15.1 Pneumonia due to Pseudomonas (principal); J44.0 Chronic obstructive pulmonary disease with (acute) lower respiratory infection; I10 Essential (primary) hypertension; E78.5 Hyperlipidemia, unspecified; K59.09 Other constipation; Z95.5 Presence of coronary angioplasty implant and graft; Z90.2 Acquired absence of lung [part of]; Z85.118 Personal history of other malignant neoplasm of bronchus and lung; Z87.891 Personal history of nicotine dependence; Z20.822 Contact with and (suspected) exposure to COVID-19
CPT/HCPCS: J0692; J1650; Q3014; Q9967

== ENCOUNTER 2022-10-30 12:51 | Emergency (ER) | payer MEDICARE ==
[2022-10-30] VITALS (8 sets, daily range): BP systolic 96–124; BP diastolic 57–74
[~2022-10-30] VITALS: Ht 149.9 cm; Wt 41.4 kg
[~2022-10-30 12:51] MED LIST changes: +ACETAMINOP160 MG/5 M PO; +ADVAIR DISK1 INH; +LEVOFLOXACIN500MG PO
[2022-10-30] MEDS ORDERED: FLUTICASONE PRO1 AE1 PO (14:02)
== END 2022-10-30 18:03 | disposition home or self-care (01) ==
LOC: ED 12:51
DX: R07.89 Other chest pain (principal); I10 Essential (primary) hypertension; E78.5 Hyperlipidemia, unspecified; C34.91 Malignant neoplasm of unspecified part of right bronchus or lung; Z79.899 Other long term (current) drug therapy; Z95.5 Presence of coronary angioplasty implant and graft; Z90.2 Acquired absence of lung [part of]

== ENCOUNTER 2022-11-09 07:58 | Inpatient (IN) | payer MEDICARE ==
[~2022-11-09] VITALS: Ht 149.9 cm; Wt 38.0 kg
[2022-11-09] VITALS (15 sets, daily range): BP systolic 108–166; BP diastolic 60–97
[~2022-11-09 07:58] MED LIST changes: +FLUTICASONE PRO1 AE1 PO
[2022-11-09 08:40] LABS: BASO% 0.6 % (0-3); EOS% 1.3 % (0-8); HEMATOCRIT 33.5 % (37.0-47.0); HEMOGLOBIN 10.2 g/dl (12.0-16.0); IMMATURE GRANULOCYTES 0.2 % (0.0-5.0); LYMPH% 10.3 % (15-41); MEAN CORPUSCULAR HGB 26.4 pG CALC (26.0-32.0); MEAN CORPUSCULAR HGB CONC 30.4 g/dL CAL (32.0-36.0); MONO% 8.8 % (2-13); NEUT# 5.03 thou/uL (2.00-7.15); NEUT% 78.8 % (42-76); RED BLOOD COUNT 3.86 mill/uL (4.20-5.60); RED CELL DISTRI WIDTH 18.1 % (11.5-15.5)
[2022-11-09 08:49] LABS: MEAN CELL VOLUME 86.8 fL CALC (80.0-100.0)
[2022-11-09 08:57] LABS: ALBUMIN 4.1 g/dL (3.2-5.0); ALKALINE PHOSPHATASE 137 u/l (38-126); ANION GAP 15 (6-22 (CALC)); BILIRUBIN, TOTAL 0.4 mg/dL (0.02-1.3); BUN 19 mg/dL (8-23); BUN/CREATININE RATIO 23 (12-20 (CALC)); CARBON DIOXIDE 22 mmol/l (22-30); CHLORIDE 109 mmol/l (95-108); CREATININE 0.8 mg/dL (0.5-1.0); GFR FOR AFR.AMER. > 60 ML/MIN (>=60 (CALC)); GFR OTHER RACES > 60 ML/MIN (>=60 (CALC)); LIPASE 106 u/l (23-300); POTASSIUM 4.3 mmol/l (3.5-5.1); SGOT/AST 23 u/l (9-36); SODIUM 142 mmol/l (137-146); TOTAL PROTEIN 6.7 g/dL (6.3-8.2)
[2022-11-09 11:38] LABS: URINE BILIRUBIN - DIPSTICK NEGATIVE (NEGATIVE); URINE BLOOD DIPSTICK NEGATIVE (NEGATIVE); URINE COLOR YELLOW; URINE GLUCOSE - DIPSTICK NEGATIVE (NEGATIVE); URINE KETONE NEGATIVE (NEGATIVE); URINE LEUK ESTERASE TRACE (NEGATIVE); URINE PH 6.5 (4.5-8.0); URINE PROTEIN - DIPSTICK NEGATIVE (NEG-TRACE); URINE UROBILINOGEN - DIPSTICK 0.2 E.U./dL (0.2)
[2022-11-09 11:48] LABS: URINE NITRITE - DIPSTICK NEGATIVE (Negative)
[2022-11-10 02:59] LABS: EOS% 3.6 % (0-8); HEMOGLOBIN 8.8 g/dl (12.0-16.0); IMMATURE GRANULOCYTES 0.2 % (0.0-5.0); LYMPH% 18.6 % (15-41); MEAN CELL VOLUME 88.1 fL CALC (80.0-100.0); MEAN CORPUSCULAR HGB 26.7 pG CALC (26.0-32.0); MEAN CORPUSCULAR HGB CONC 30.3 g/dL CAL (32.0-36.0); MONO% 11.3 % (2-13); NEUT# 3.3 thou/uL (2.00-7.15); NEUT% 65.3 % (42-76); RED BLOOD COUNT 3.29 mill/uL (4.20-5.60); RED CELL DISTRI WIDTH 18.2 % (11.5-15.5)
[2022-11-10 03:15] LABS: ALBUMIN 3.4 g/dL (3.2-5.0); ALKALINE PHOSPHATASE 114 u/l (38-126); ANION GAP 11 (6-22 (CALC)); BUN 18 mg/dL (8-23); BUN/CREATININE RATIO 20 (12-20 (CALC)); CARBON DIOXIDE 22 mmol/l (22-30); CHLORIDE 111 mmol/l (95-108); CREATININE 0.9 mg/dL (0.5-1.0); GFR FOR AFR.AMER. > 60 ML/MIN (>=60 (CALC)); GFR OTHER RACES 60 ML/MIN (>=60 (CALC)); MAGNESIUM 1.9 mg/dL (1.6-2.3); SGOT/AST 18 u/l (9-36); SODIUM 140 mmol/l (137-146); TOTAL PROTEIN 5.8 g/dL (6.3-8.2)
[2022-11-10 03:28] LABS: BILIRUBIN, TOTAL 0.2 mg/dL (0.02-1.3)
[2022-11-10 04:15] VITALS: BP 148/70
[2022-11-10 04:18] VITALS: BP 148/70
[2022-11-10 07:16] VITALS: BP 130/71
[2022-11-10 10:51] VITALS: BP 111/61
[2022-11-10] MEDS ORDERED: REMERON7.5 MG PO (11:22)
[2022-11-10] MEDS ORDERED: ZITHROMAX250 MG PO (11:23)
[2022-11-10] MEDS ORDERED: TRAMADOL HCL50 MG PO (11:23)
== END 2022-11-10 12:48 | disposition home or self-care (01) | DRG 194 ==
LOC: ED 07:58 → MS2 10:57
PROVIDERS: Family Medicine; Nurse Practitioner Family; ADMIT Internal Medicine; ATTEND Internal Medicine
DX: J18.9 Pneumonia, unspecified organism (principal); C34.91 Malignant neoplasm of unspecified part of right bronchus or lung; J44.0 Chronic obstructive pulmonary disease with (acute) lower respiratory infection; R07.81 Pleurodynia; I10 Essential (primary) hypertension; E78.5 Hyperlipidemia, unspecified; G47.00 Insomnia, unspecified; Z90.2 Acquired absence of lung [part of]; Z95.5 Presence of coronary angioplasty implant and graft; Z79.899 Other long term (current) drug therapy; K59.09 Other constipation; Z87.891 Personal history of nicotine dependence; F41.9 Anxiety disorder, unspecified; F32.A Depression, unspecified; I25.10 Atherosclerotic heart disease of native coronary artery without angina pectoris
CPT/HCPCS: J1650

== ENCOUNTER 2022-12-05 11:02 | Emergency (ER) | payer MEDICARE ==
[~2022-12-05] VITALS: Ht 149.9 cm; Wt 36.5 kg
[2022-12-05] VITALS (8 sets, daily range): BP systolic 144–165; BP diastolic 73–82
[~2022-12-05 11:02] MED LIST changes: +REMERON7.5 MG PO; +TRAMADOL HCL50 MG PO; +ZITHROMAX250 MG PO
[2022-12-05] MEDS ORDERED: DILAUDID2 MG PO ×2 (13:38→13:50)
[2022-12-06] MEDS ORDERED: DILAUDID2 MG PO (17:32)
[2022-12-08] MEDS ORDERED: LORTAB 5/3255 MG PO (10:43)
== END 2022-12-05 14:20 | disposition home or self-care (01) ==
LOC: ED 11:02
DX: G89.3 Neoplasm related pain (acute) (chronic) (principal); I10 Essential (primary) hypertension; C34.91 Malignant neoplasm of unspecified part of right bronchus or lung; E78.5 Hyperlipidemia, unspecified; Z95.5 Presence of coronary angioplasty implant and graft; Z90.2 Acquired absence of lung [part of]